=== PATIENT | female | born 1980 | race Caucasian/White ===

== ENCOUNTER → 2020-02-20 | Outpatient (CLI) | payer OTHER ==
[~2020-02-20] MED LIST: ANUS2.5C2 PR; CLAR10CA3 PO; DOCU5LIQ PO; FLUO20CA20 PO; IBUP80TA PO; MAPA500T17 PO; MOTR200T44 PO; MULT1TAB8 PO; OMEP10CASR PO; TIZA4CAP PO; TOPA1TAB PO; VICO5TAB17 PO
--- NOTE | 2020-03-05 10:57 | REPMRS ---
Patient History Patient had tested negative for BRCA1. Family history of breast cancer in paternal aunt, breast cancer in paternal grandmother. Digital Woman Screen Mammo: February 20, 2020 - Exam #: [id number] Bilateral CC and MLO view(s) were taken. Technologist: Kassie Clay, Technologist Prior study comparison: June 05, 2016, bilateral digital woman screen mammo, performed at [facility]. FINDINGS: The breast tissue is almost entirely fat. The Volpara volumetric breast density category is: A. There has been no change in the appearance of the mammogram from the prior studies. There is no interval development of dominant mass, architectural distortion, or grouped microcalcification typical of malignancy. 3-D tomosynthesis shows no additional findings. Assessment: BI-RADS/ACR category 1 mammogram. Negative Mammogram. Recommendation Breast MRI of both breasts in 6 months. Routine screening mammogram of both breasts in 1 year (for women over age 40). This patient's Lifetime Breast Cancer RIsk is estimated at 24.6 %. Annual screening Breast MRI scanniing is recommended for patient's whose lifetime risk assessment is over 20%. This mammogram was interpreted with the aid of an FDA-approved computer-aided dectection system. Electronically Signed By: Wally Alamo MD 03/05/20 [id number]
== END ==
LOC: M WHC 12:56
PROVIDERS: ATTEND Specialist
DX: Z12.31 Encounter for screening mammogram for malignant neoplasm of breast (principal); Z80.3 Family history of malignant neoplasm of breast

== ENCOUNTER → 2020-09-25 | Outpatient (CLI) | payer OTHER ==
[~2020-09-25] MED LIST changes: +PROHANCE 279.3MG/ML 15ML VIAL As Ordered ONE
--- NOTE | 2020-09-25 17:24 | REP ---
INDICATION: FAMILY HISTORY, HIGH RISK FOR BREAST CA. COMPARISON: Comparison mammography February 20, 2020. TECHNIQUE: Three [facility]sey MRI imaging was performed with a dedicated breast coil. Axial, coronal, and sagittal T1 and T2 weighted scans were obtained with and without fat saturation in the usual fashion. The study includes dynamically acquired post gadolinium-enhanced imaging with image subtraction. Maximum intensity projection and multi planar reformation imaging is included as well. This study is interpreted with the aid of Rezzcard, an FDA approved computer aided detection (CAD) software program, on a dedicated breast MRI workstation. The gadolinium enhancement dose is 13 mL of intravenous ProHance. FINDINGS: Scattered fibroglandular elements are noted bilaterally. There is a minimal pattern of background parenchymal enhancement. There is no evidence of axillary lymphadenopathy on either side. No evidence of significant breast cystic changes seen. High-resolution pre and post-contrast enhanced MR images show no suspicious morphologic abnormality in either breast. Dynamically acquired sequential postcontrast images show no suspicious focus of enhancement and/or washout in either breast to suggest malignancy. Subtraction images are unremarkable. IMPRESSION: BI-RADS category 1 negative. Repeat screening breast MRI scanning recommended in 1 year. Annual screening mammography should also be continued. <Electronically signed by Wally Alamo > 09/25/20 [id number]
== END ==
LOC: M RAD 14:53
PROVIDERS: ATTEND Specialist
DX: Z12.31 Encounter for screening mammogram for malignant neoplasm of breast (principal); Z15.01 Genetic susceptibility to malignant neoplasm of breast; Z80.3 Family history of malignant neoplasm of breast
CPT/HCPCS: A9576; C8908

== ENCOUNTER → 2022-01-21 | Outpatient (REF) | payer OTHER ==
[~2022-01-21] MED LIST changes: +FLUO-96 PO; -FLUO20CA20 PO; -PROHANCE 279.3MG/ML 15ML VIAL As Ordered ONE
[2022-01-21 11:34] LABS: BASO % 0.6 % (0.0-1.0); EOS # 0.1 10^3/uL (0.0-0.5); EOS % 1.5 % (0.0-3.0); HEMATOCRIT 37.8 % (36.0-47.0); HEMOGLOBIN 12.7 g/dl (12.0-15.5); LYMPH # 1.4 10^3/uL (1.5-5.0); LYMPH % 29.8 % (24.0-44.0); MEAN CORPUSCULAR HEMOGLOBIN 29.8 pg (27.0-33.0); MEAN CORPUSCULAR HGB CONC 33.6 g/dl (32.0-36.5); MEAN CORPUSCULAR VOLUME 88.7 fl (80.0-96.0); MONO # 0.4 10^3/uL (0.0-0.8); MONO % 7.7 % (2.0-8.0); NEUTROPHILS # 2.8 10^3/uL (1.5-8.5); NEUTROPHILS % 60.2 % (36.0-66.0); PLATELET COUNT, AUTOMATED 393 10^3/uL (150-450); RED BLOOD COUNT 4.26 10^6/uL (4.00-5.40); WHITE BLOOD COUNT 4.7 10^3/uL (4.0-10.0)
[2022-01-21 11:54] LABS: ALBUMIN 3.5 GM/DL (3.2-5.2); ALT/SGPT 33 U/L (12-78); BILIRUBIN,TOTAL 0.3 MG/DL (0.2-1.0); BLOOD UREA NITROGEN 14 MG/DL (7-18); CALCIUM LEVEL 8.6 MG/DL (8.5-10.1); CARBON DIOXIDE LEVEL 26 MEQ/L (21-32); CHLORIDE LEVEL 107 MEQ/L (98-107); CHOLESTEROL LEVEL 195 MG/DL (<200); CREATININE FOR GFR 0.74 MG/DL (0.55-1.30); GLOMERULAR FILTRATION RATE > 60.0 (>58); GLUCOSE, FASTING 94 MG/DL (70-100); HDL CHOLESTEROL 50 MG/DL (>40); IRON (FE) 116 UG/DL (50-170); LDL CHOLESTEROL 88 MG/DL (<100); NON-HDL-C 145 MG/DL; SODIUM LEVEL 138 MEQ/L (136-145); TOTAL PROTEIN 6.8 GM/DL (6.4-8.2); TRIGLYCERIDES LEVEL 285 MG/DL (<150)
== END ==
LOC: M SFHCCLAY 07:46
PROVIDERS: ATTEND Family Medicine
DX: Z00.00 Encounter for general adult medical examination without abnormal findings (principal); Z13.29 Encounter for screening for other suspected endocrine disorder; Z13.220 Encounter for screening for lipoid disorders; Z13.0 Encounter for screening for diseases of the blood and blood-forming organs and certain disorders involving the immune mechanism

== ENCOUNTER → 2022-08-05 | Outpatient (REF) | payer OTHER | LOC: M SFHCCLAY 14:34 | PROVIDERS: ATTEND Physician Assistant | DX: Z20.818 Contact with and (suspected) exposure to other bacterial communicable diseases (principal) ==

== ENCOUNTER → 2024-02-04 | Outpatient (CLI) | payer OTHER | LOC: M CLY 14:21 | PROVIDERS: ATTEND Family Medicine | DX: M25.552 Pain in left hip (principal) ==

== ENCOUNTER → 2024-02-04 | Outpatient (CLI) | payer OTHER | LOC: M CLY 14:00 | PROVIDERS: ATTEND Family Medicine | DX: Z53.9 Procedure and treatment not carried out, unspecified reason (principal) ==

== ENCOUNTER → 2024-09-14 | Outpatient (CLI) | payer OTHER | LOC: M WHC 14:06 | PROVIDERS: ATTEND Specialist | DX: Z12.31 Encounter for screening mammogram for malignant neoplasm of breast (principal); R92.313 Mammographic fatty tissue density, bilateral breasts ==

== ENCOUNTER → 2025-02-16 | Outpatient (REF) | payer OTHER ==
[2025-02-16 18:37] LABS: IRON (FE) 119 UG/DL (50-170)
[2025-02-16 18:38] LABS: ALKALINE PHOSPHATASE 53 U/L (35-104); ALT/SGPT 34 U/L (7.0-40); AST/SGOT 20 U/L (<34); BILIRUBIN,TOTAL 0.2 MG/DL (0.3-1.2); BLOOD UREA NITROGEN 11 MG/DL (9-23); CALCIUM LEVEL 9.2 MG/DL (8.5-10.1); CARBON DIOXIDE LEVEL 23 MMOL/L (20-31); CHLORIDE LEVEL 104 MMOL/L (98-107); CHOLESTEROL LEVEL 200 MG/DL (<200); CREATININE FOR GFR 0.65 MG/DL (0.55-1.30); GLOMERULAR FILTRATION RATE > 90.0 (>58); GLUCOSE, FASTING 121 MG/DL (60-100); HDL CHOLESTEROL 49.9 MG/DL (>40); LDL CHOLESTEROL 83.9 MG/DL (<100); MAGNESIUM LEVEL 1.9 MG/DL (1.8-2.4); NON-HDL-C 150.1 MG/DL; POTASSIUM SERUM 4.2 MMOL/L (3.5-5.1); SODIUM LEVEL 139 MMOL/L (136-145); TOTAL PROTEIN 7.1 G/DL (5.7-8.2); TRIGLYCERIDES LEVEL 331 MG/DL (<150)
[2025-02-16 18:41] LABS: THYROID STIMULATING HORMONE 1.186 uIU/ML (0.55-4.78); TOTAL T3 129.9 NG/DL (60.0-181.0)
[2025-02-16 18:42] LABS: BASO % 0.5 % (0.0-1.0); EOS # 0.1 10^3/uL (0.0-0.5); EOS % 1.3 % (0.0-3.0); FREE T4 1.07 NG/DL (0.89-1.76); HEMATOCRIT 40.8 % (36.0-47.0); HEMOGLOBIN 13.5 g/dl (12.0-15.5); LYMPH % 26.6 % (24.0-44.0); MEAN CORPUSCULAR HEMOGLOBIN 29.7 pg (27.0-33.0); MEAN CORPUSCULAR HGB CONC 33.1 g/dl (32.0-36.5); MEAN CORPUSCULAR VOLUME 89.7 fl (80.0-96.0); MONO # 0.4 10^3/uL (0.0-0.8); MONO % 5.7 % (2.0-8.0); NEUTROPHILS # 5.1 10^3/uL (1.5-8.5); NEUTROPHILS % 65.8 % (36.0-66.0); PLATELET COUNT, AUTOMATED 371 10^3/uL (150-450); RED BLOOD COUNT 4.55 10^6/uL (4.00-5.40); WHITE BLOOD COUNT 7.7 10^3/uL (4.0-10.0)
[2025-02-16 18:46] LABS: HEMOGLOBIN A1c 5.1 % (4.0-6.0)
== END ==
LOC: M SFHCCLAY 13:03
PROVIDERS: ATTEND Family Medicine
DX: Z00.00 Encounter for general adult medical examination without abnormal findings (principal); K21.9 Gastro-esophageal reflux disease without esophagitis; H53.9 Unspecified visual disturbance; R53.83 Other fatigue; R23.2 Flushing

== ENCOUNTER → 2025-08-31 | Outpatient (CLI) | payer OTHER | LOC: M RAD 08:51 | PROVIDERS: ATTEND Ophthalmology | DX: H53.2 Diplopia (principal); J34.2 Deviated nasal septum; R93.0 Abnormal findings on diagnostic imaging of skull and head, not elsewhere classified ==

== ENCOUNTER → 2025-09-18 | Outpatient (CLI) | payer OTHER | LOC: M WHC 11:45 | PROVIDERS: ATTEND Family Medicine | DX: Z12.31 Encounter for screening mammogram for malignant neoplasm of breast (principal); Z53.9 Procedure and treatment not carried out, unspecified reason ==

== ENCOUNTER → 2025-10-10 | Outpatient (CLI) | payer OTHER | LOC: M WHC 12:25 | PROVIDERS: ATTEND Family Medicine | DX: Z12.31 Encounter for screening mammogram for malignant neoplasm of breast (principal) ==